=== PATIENT | female | born 1965 | race Caucasian/White ===

== ENCOUNTER → 2017-02-24 | Outpatient (CLI) | payer OTHER | LOC: BMCIMAGING 09:42 | PROVIDERS: ATTEND Family Medicine | DX: Z12.31 Encounter for screening mammogram for malignant neoplasm of breast (principal); R92.8 Other abnormal and inconclusive findings on diagnostic imaging of breast; Z13.820 Encounter for screening for osteoporosis; M81.0 Age-related osteoporosis without current pathological fracture | CPT/HCPCS: G0202 ==

== ENCOUNTER → 2017-03-16 | Outpatient (CLI) | payer OTHER | LOC: BMCIMAGING 12:53 | DX: N60.02 Solitary cyst of left breast (principal) | CPT/HCPCS: G0204 ==

== ENCOUNTER → 2017-04-13 | Outpatient (CLI) | payer OTHER | LOC: BRMIMAGING 11:30 | PROVIDERS: ATTEND Family Medicine | DX: N95.0 Postmenopausal bleeding (principal) | CPT/HCPCS: 76856-PO ==

== ENCOUNTER → 2017-06-02 | Outpatient (CLI) | payer OTHER | LOC: BRMIMAGING 08:43 | PROVIDERS: ATTEND Family Medicine | DX: Z09 Encounter for follow-up examination after completed treatment for conditions other than malignant neoplasm (principal); Z87.42 Personal history of other diseases of the female genital tract | CPT/HCPCS: 76856-PO ==

== ENCOUNTER → 2017-06-16 | Outpatient (CLI) | payer OTHER | LOC: BMCIMAGING 08:56 | PROVIDERS: ATTEND Family Medicine | DX: M25.551 Pain in right hip (principal) ==

== ENCOUNTER → 2019-04-11 | Outpatient (CLI) | payer OTHER | LOC: BMCIMAGING 15:03 | PROVIDERS: ATTEND Family Medicine | DX: Z12.31 Encounter for screening mammogram for malignant neoplasm of breast (principal); Z13.820 Encounter for screening for osteoporosis; M81.0 Age-related osteoporosis without current pathological fracture ==